=== PATIENT | female | born 1965 | race Caucasian/White ===

== ENCOUNTER 2016-12-18 09:57 | Emergency (ER) | payer OTHER ==
[~2016-12-18] VITALS: Ht 160 cm; Wt 56.2 kg
[~2016-12-18 09:57] MED LIST: VICODIN 5-3001 EACH PO
[2016-12-18 10:05] VITALS: BP 150/85
--- NOTE | 2016-12-18 10:36 | ED HAND/WRIST INJURY COMPLAINT ---
History of Present Illness General Chief Complaint: Hand or Wrist Injury Stated Complaint: L HAND PAIN Source: patient Exam Limitations: no limitations Vital Signs & Intake/Output Vital Signs & Intake/Output Vital Signs Date Time Temp Pulse Resp B/P Pulse O2 O2 Flow FiO2 Ox Delivery Rate 12/18 1005 97.1 80 18 150/85 98 Room Air Allergies Coded Allergies: NO KNOWN ALLERGIES (11/07/11) Triage Note: COMPLAINS OF L HAND PAIN AFTER FALL ON FRIDAY. TAKING MOTRIN WITH NO RELIEF AND WOULD LIKE TO BE SEEN FOR SOMETHING STRONGER Triage Nurses Notes Reviewed? yes Occurred: 3 DAYS Duration: day(s): (3) Timing: no prior history Injury Environment: home Severity: moderate Severity Numbers: 7 Pain/Injury Location: Left: Hand. Context: fall Method of Injury: fall Modifying Factors: Improves With: immobilization. Worsens With: movement. HPI: Patient is a 51-year-old female presenting to the emergency Department chief complaint of left hand pain after tripping and falling 3 days ago. She reports that she fell on an outstretched hand. Has had pain at the base of her first left digit. Pain is worse with movement. Has been using Tylenol without relief. Denies any other injuries. No head injury or loss of consciousness. No neck pain. No numbness or tingling. Pain does not radiate. (NALLELY LORD) Reconcile Medications Naproxen (Naprosyn) 500 MG TABLET 1 TAB PO BID PRN PAIN (MARYSOL HALL DO) Past History Travel History Traveled to [place] past 21 day No Medical History Any Pertinent Medical History? see below for history Neurological: NONE EENT: NONE Cardiovascular: NONE Respiratory: NONE Gastrointestinal: NONE Hepatic: hepatitis C Renal: NONE Musculoskeletal: NONE Psychiatric: NONE Endocrine: NONE Blood Disorders: HIV Surgical History Surgical History: non-contributory Psychosocial History What is your primary language Sinhala Tobacco Use: Never used ETOH Use: denies use Illicit Drug Use: denies illicit drug use Family History Hx Contributory? No (NALLELY LORD) Review of Systems Review of Systems Constitutional: Reports: no symptoms. Comments Review of systems: See HPI, All other systems negative. Constitutional, no chills fever or weight loss HEENT: No visual changes no sore throat no congestion Cardiovascular: No chest pain Skin, no jaundice no rashes Respiratory: No dyspnea cough sputum or hemoptysis GI: No nausea no vomiting : No dysuria No hematuria Muscle skeletal: no back pain, no neck pain, Neurologic: No numbness no confusion Psych: No stress anxiety Immunology: No splenectomy or history of AIDS (NALLELY LORD) Physical Exam Physical Exam General Appearance: well developed/nourished, no apparent distress, alert, awake , comfortable Hand Left: limited range of motion, tender, POSITIVE SNUFFBOX TENDERNESS ON THE LEFT. Hand Right: normal inspection, normal range of motion Comments: Well-developed well-nourished person in no acute distress HEENT: Pupils equally round and reactive to light and accommodation. Nose is atraumatic. Neck: NORMAL INSPECTION Cardiovascular: Regular rate and rhythms no murmurs rubs or gallops, normal JVP Respiratory: Chest nontender. No respiratory distress.breath sounds clear to auscultation bilaterally Extremity: No edema, tender to palpation over the left snuffbox, limited range of motion of the left wrist, no obvious edema or erythema. Nontender to palpation over the dorsum of the left hand, full range of motion days on the left hand. Radial pulses are 2+ bilaterally. Full range of motion of left elbow. Neuro: Alert oriented x3, motor sensory normal, Skin: No appreciable rash on exposed skin, skin is warm and dry. Psych: Mood and affect is normal, memory and judgment is normal. (NALLELY LORD) Progress Differential Diagnosis: contusion, dislocation, fracture, sprain, SCAPHOID FRACTURE Plan of Care: Orders Procedure Date/time Status Durable Medical Equipment 12/18 1109 Active Diagnostic Imaging: Viewed by Me: Radiology Read. Discussed w/RAD: Radiology Read. Radiology Impression: PATIENT: KIRA ESPOSITO PRESENT AGE: 51 PATIENT ACCOUNT NO: [id number] : 65 LOCATION: [facility] ORDERING PHYSICIAN: MARYSOL HALL DO SERVICE DATE: 12/18/16 EXAM TYPE: RAD - XRY-HAND, LEFT EXAMINATION: XR HAND, LEFT CLINICAL INFORMATION: Fall. Hand pain and swelling. COMPARISON: No relevant prior imaging available. TECHNIQUE: Three views of the left hand. FINDINGS: There is no acute fracture or dislocation. Joint spaces are maintained. Proximal and distal carpal rows are intact. There is neutral ulnar variance. IMPRESSION: Unremarkable examination with no evidence of acute fracture or dislocation. Comments: Patient given IM Toradol arrival for pain. Patient will be splinted and follow up with orthopedic as initial x-rays negative. Patient nontoxic. (NALLELY LORD) Departure Departure Time of Disposition: 1107 Disposition: HOME OR SELF CARE Condition: Stable Clinical Impression Primary Impression: Hand sprain Qualifiers: Encounter type: initial encounter Laterality: left Qualified Code: S63.92XA - Sprain of unspecified part of left wrist and hand, initial encounter Referrals: LIZZY LEE,HAI MENA (PCP/Family) Additional Instructions: Follow-up with orthopedics call to make an appointment. He may need repeat x- rays in a week if symptoms do not improve. Wear splint until follow-up. Take naproxen as prescribed with pain. Rest ice and elevate. Return for worsening symptoms or concerns. Departure Forms: Customer Survey General Discharge Information Prescriptions: Current Visit Scripts Naproxen (Naprosyn) 1 TAB PO BID PRN PAIN #20 TAB (NALLELY LORD) PA/EMBEDDED SOFTWARE ARCHITECT Co-Sign Statement Statement: ED Attending supervision documentation- [] I saw and evaluated the patient. I have also reviewed all the pertinent lab results and diagnostic results. I agree with the findings and the plan of care as documented in the PA's/EMBEDDED SOFTWARE ARCHITECT's documentation. [X] I have reviewed the ED Record and agree with the PA's/EMBEDDED SOFTWARE ARCHITECT's documentation. [] Additions or exceptions (if any) to the PAs/EMBEDDED SOFTWARE ARCHITECT's note and plan are summarized below: [] (MARYSOL HALL DO) Procedures Splinting Location: LEFT WRIST Manual Alignment Performed: No Pre-Made Type: velcro Splint: thumb spica Splint Applied By: splint applied by other Pre-Proc Neuro Vasc Exam: normal Post-Proc Neuro Vasc Exam: normal Progress: Patient tolerated procedure well. (NALLELY LORD)
--- NOTE | 2016-12-18 11:06 | RADIOLOGY REPORT ---
EXAMINATION: XR HAND, LEFT CLINICAL INFORMATION: Fall. Hand pain and swelling. COMPARISON: No relevant prior imaging available. TECHNIQUE: Three views of the left hand. FINDINGS: There is no acute fracture or dislocation. Joint spaces are maintained. Proximal and distal carpal rows are intact. There is neutral ulnar variance. IMPRESSION: Unremarkable examination with no evidence of acute fracture or dislocation.
[2016-12-18] MEDS ORDERED: NAPROSYN500 M1 PO (11:09)
== END 2016-12-18 11:37 ==
LOC: ERH 09:57
DX: S63.92XA Sprain of unspecified part of left wrist and hand, initial encounter (principal); W19.XXXA Unspecified fall, initial encounter
CPT/HCPCS: 73130-LT; 96372; J1885